=== PATIENT | male | born 1995 ===

== ENCOUNTER 2022-07-09 09:53 | Emergency (ER) | payer MEDICAID ==
[2022-07-09 10:34] VITALS: BP 110/66
[2022-07-09 11:33] LABS: Mucus,Urine FEW /HPF
[2022-07-09 12:33] LABS: Bilirubin,Urine 1+ (Negative); Blood,Urine Negative (Negative); Color,Urine Yellow (Yellow)
[2022-07-09 12:34] LABS: Ictotest,Urine Negative (Negative); Protein,Urine <15 mg/dL mg/dL (Negative)
== END 2022-07-10 02:00 | disposition left against medical advice (07) ==
LOC: ED 09:53
DX: R10.9 Unspecified abdominal pain (principal); Z53.21 Procedure and treatment not carried out due to patient leaving prior to being seen by health care provider
CPT/HCPCS: 81001